=== PATIENT | female | born 1985 | race Caucasian/White ===

== ENCOUNTER 2017-03-17 17:35 | Observation (INO) ==
[2017-03-17 18:32] LABS: MANUAL DIFF NEEDED? NO
[2017-03-17 18:37] LABS: BASO% 0.2 % (0.0-0.8); EOS# 0.11 X1000 (0.0-0.7); EOS% 2.5 % (0.0-10.0); HEMATOCRIT 33.5 % (37.0-47.0); HEMOGLOBIN 11.4 g/dL (12.0-16.0); LYMPH# 1.76 X1000 (1.2-3.4); LYMPH% 40.6 % (20.5-51.1); MCH 30.8 PG (27-31); MCV 90.5 FL (81-99); MONO# 0.37 X1000 (0.11-0.59); MONO% 8.5 % (1.7-9.3); NEUT% 48.2 % (42.2-75.2); PLT 142 X1000 (130-400)
[2017-03-17] MEDS ORDERED: TORADOL IV ONE (18:50)
--- NOTE | 2017-03-17 18:55 | Diag Imaging Result Doc PS360 ---
EXAM: ABDOMEN FLAT/UPRIGHT INDICATION: ABD PAIN POST OP TECHNIQUE: 2 views COMPARISON: None. FINDINGS: There is retained contrast media in the colon from a previous study. There is no obstructive bowel pattern. There is extraluminal free gas underneath both diaphragms on the upright image. There was reportedly recent surgery. If so, this probably represents postsurgical gas. Please correlate clinically. IMPRESSION: Free abdominal gas as described. If there has been very recent surgery, this could represent postsurgical gas. Correlate with clinical and surgical history. Electronically signed by Jonathan Kirk 03/17/2017 6:53 PM
[2017-03-17] MEDS ORDERED: ZOFRAN IV PRN (20:28)
[2017-03-17] MEDS ORDERED: D5 1/2 NS 250 ML IV SCH (20:28)
[2017-03-17] MEDS ORDERED: GOLYTELY PO ONE (20:28)
[2017-03-17] MEDS ORDERED: D5 1/2 NS 1,000 ML IV SCH (20:45)
[2017-03-17] MEDS: DILAUDID IV PRN (22:50)
[2017-03-18] MEDS: DILAUDID IV PRN ×3 (02:38→11:04)
[2017-03-18 07:47] VITALS: BP 96/59
--- NOTE | 2017-03-25 15:37 | HISTORY AND PHYSICAL ---
DIAGNOSIS: Abdominal and chest pain, 2 days status post laparoscopic appendectomy. HISTORY OF PRESENT ILLNESS: The patient is a 31-year-old white female 2 days status post laparoscopic appendectomy, complaining of abdominal and chest pain. She was seen in the emergency room. Her white count is normal. Flat and upright reveals a large amount of stool in the colon and free air under both hemidiaphragms. The plan is for admission and observation with GoLYTELY to move out the stool and contrast in her colon from her previous preop CT. PHYSICAL EXAMINATION: GENERAL: Reveals a tall, thin white female in moderate discomfort. HEAD AND NECK EXAM: She is normocephalic, atraumatic. Pupils equal and reactive. SKIN: There is no subcutaneous emphysema. MUSCULOSKELETAL: This some pain on deep inspiration. ABDOMEN: Protuberant, especially in the lower abdomen. The laparoscopic wounds appear to be healing nicely. : Negative. NEUROLOGICALLY: Intact. IMPRESSION: Postoperative constipation. PLAN: Admission. Pain and nausea control with GoLYTELY treatment to move out the bowels and probable early discharge. cc: Lang Elliott MD
== END 2017-03-18 11:12 | disposition home or self-care (01) ==
LOC: ED 17:35 → 4N 17:35
PROVIDERS: ADMIT Surgery; ATTEND Surgery